=== PATIENT | male | born 1965 | race Caucasian/White ===

== ENCOUNTER 2021-09-06 16:42 | Emergency (ER) | payer MEDICARE, MEDICAID, SELFPAY ==
[2021-09-06 17:13] VITALS: BP 147/54; PULSE 77; RESP 16; TEMP 35.5; O2SAT 99; BMI 41.6
[2021-09-06 17:56] LABS: MANUAL DIFF FLAG NO
[2021-09-06 17:58] LABS: Basophils Percent Auto 0.2 % (0-2); Eosinophils Absolute Auto 0.2 X10*3/uL (0.0-0.4); Eosinophils Percent Auto 2.5 % (0-4); Hematocrit 29.2 % (42.0-52.0); Hemoglobin 10.2 g/dl (14.0-18.0); Imm Gran Pct Auto 1.5 % (0.0-0.4); Lymphocytes Absolute Auto 0.7 X10*3/uL (1.2-4.9); Mean Corpuscular HGB Conc 34.9 g/dl (31.0-36.0); Mean Corpuscular Volume 85.9 fL (80.0-98.0); Mean Platelet Volume 10.3 fL (9.4-12.4); Monocytes Absolute Auto 0.6 X10*3/uL (0.1-1.2); Monocytes Percent Auto 9.1 % (2-11); Neutrophils Absolute Auto 4.9 x10*3/uL (2.0-8.3); Neutrophils Percent Auto 75.7 % (45-73); Platelet Count 131 X10*3/uL (160-400); Red Cell Distribution Width 14.7 % (11.0-16.0); White Blood Count 6.5 X10*3/uL (4.8-10.8)
[2021-09-06 18:27] LABS: Lithium < 0.10 mmol/L (0.60-1.20)
[2021-09-06 18:30] LABS: Anion Gap 20 (12-20); Blood Urea Nitrogen 47 mg/dL (9-16); Calcium 9.8 mg/dL (8.4-10.2); Carbon Dioxide 26 mmol/L (22-29); Chloride 90 mmol/L (96-108); Creatinine Clr Calc Pharmacy 48.9; Estimated Glomerular Filt Rate 38; Glucose Random 458 mg/dL (60-115); Potassium 3.8 mmol/L (3.3-5.1); Sodium 132 mmol/L (135-145)
[2021-09-06 21:55] VITALS: BP 171/73; PULSE 75; RESP 16; TEMP 35.8; O2SAT 98
[2021-09-07 01:08] VITALS: BP 170/58; PULSE 69; RESP 16; O2SAT 99
--- NOTE | 2021-09-07 02:19 | PC.NURSE ---
Patient becoming agitated and walked out of ER.
== END 2021-09-07 02:20 | disposition left against medical advice (07) ==
PROVIDERS: Emergency Provider Emergency Medicine; PCP Internal Medicine
DX: G47.00 Insomnia, unspecified (principal); Z79.899 Other long term (current) drug therapy
CPT/HCPCS: 36415; 80048; 80178; 85025; 99283